=== PATIENT | male | born 1975 | race African-American/Black ===

== ENCOUNTER 2019-02-04 21:01 | Emergency (ER) | payer OTHER ==
--- NOTE | 2019-02-04 21:08 | PDOC ---
Rapid Medical Evaluation Time Seen by Provider: 02/04/19 21:08 Medical Evaluation: 02/04/19 21:08 I performed a brief in-person evaluation of this patient. 43-year-old male with HTN, IDDM complaining of two days of cough, congestion, chills, and chest "heaviness", pain. Pertinent physical exam findings: RRR,S1/S2 Lungs CTAB Nasal congestion I have ordered the following: EKG CXR Rapid flu Patient to proceed to: ED for further evaluation Discharge Disposition - Diagnosis Chest pain - Referrals - Patient Instructions - Post Discharge Activity
[2019-02-04 21:11] VITALS: TEMP 99.5; BMI 32.8
[2019-02-04] MEDS ORDERED: DEXAMETHASONE LIQUID 0.5 MG/5 ML PO ONE (22:19)
[2019-02-04] MEDS ORDERED: ACETAMINOPHEN 500 MG TABLET (FP) PO ONE (22:20)
[2019-02-04] MEDS ORDERED: DEXAMETHASONE SOD PHOSPHATE 10 MG/1 ML VIAL ONE (22:29)
[2019-02-04] MEDS ORDERED: ACETAMINOPHEN 500 MG TABLET (FP) ONE (22:29)
[2019-02-04] MEDS ORDERED: ALBUTEROL SO4 2.5/IPRATROPIUM 0.5 INH SOL 3 ML VIAL.NEB. NEB ONE (22:29)
--- NOTE | 2019-02-04 22:37 | PDOC ---
History of Present Illness - General Chief Complaint: Respiratory Stated Complaint: CHEST PAIN Time Seen by Provider: 02/04/19 21:08 - History of Present Illness Initial Comments: 02/04/19 22:32 43-year-old male with a past medical history of diabetes presents for evaluation of cough and flulike symptoms x2 days Past History - Past Medical History Allergies/Adverse Reactions: Allergies Allergy/AdvReac Type Severity Reaction Status Date / Time No Known Allergies Allergy Verified 02/04/19 21:11 Home Medications: Ambulatory Orders Albuterol Sulfate Inhaler - [Ventolin HFA Inhaler -] 1 - 2 inh PO Q4H #1 inhaler 02/04/19 Azithromycin [Zithromax -] 250 mg PO UTDICT #6 tab 02/04/19 Guaifenesin Dm [Mucinex Dm -] 1 tab PO BID #60 tab.er.12h 02/04/19 COPD: No Diabetes: Yes (IDDM) HTN: Yes - Psycho Social/Smoking Cessation Hx Smoking History: Never smoked Review of Systems - Review of Systems Constitutional: Yes: Chills, Fever, Malaise, Night Sweats Respiratory: Yes: Cough *Physical Exam - Vital Signs Last Vital Signs Temp Pulse Resp BP Pulse Ox 99.5 F 101 H 18 137/96 97 02/04/19 21:08 02/04/19 21:08 02/04/19 21:08 02/04/19 21:08 02/04/19 21:08 - Physical Exam 02/04/19 22:32 GENERAL: The patient is awake, alert, and fully oriented, in no acute distress. HEAD: Normal with no signs of trauma. EYES: sclera anicteric, conjunctiva clear. ENT: Ears normal tympanic membranes normal oropharynx clear uvula midline NECK: Normal range of motion LUNGS: Diffuse wheezing and bibasilar rhonchi HEART: S1 and S2 without murmur, rub or gallop. ABDOMEN: Soft, nontender, normoactive bowel sounds. No guarding, no rebound. No masses. EXTREMITIES: Normal range of motion, no edema. No clubbing or cyanosis. No cords, erythema, or tenderness. NEUROLOGICAL: Cranial nerves II through XII grossly intact. Normal speech, normal gait. PSYCH: Normal mood, normal affect. SKIN: Warm, Dry, normal turgor, no rashes or lesions noted. Medical Decision Making - Medical Decision Making 02/04/19 22:37 EKG normal, improved after duoneb and steroids, will treat with zithromax cxr clear Discharge - Discharge Information Problems reviewed: Yes Clinical Impression/Diagnosis: Chest pain, Bronchitis Condition: Improved Disposition: HOME - Admission No - Additional Discharge Information Prescriptions: Albuterol Sulfate Inhaler - [Ventolin HFA Inhaler -] 1 - 2 inh PO Q4H #1 inhaler Azithromycin [Zithromax -] 250 mg PO UTDICT #6 tab Guaifenesin Dm [Mucinex Dm -] 1 tab PO BID #60 tab.er.12h - Follow up/Referral Referrals: ON STAFF,NOT [Primary Care Provider] - - Patient Discharge Instructions Patient Printed Discharge Instructions: DI for Acute Bronchitis Additional Instructions: Please use the antibiotic inhaler and Mucinex as directed. Return to the emergency room for worsening symptoms and without fail please follow-up with your primary care physician in 1 to 2 days for further evaluation and treatment options - Post Discharge Activity
[2019-02-04] MEDS: ALBUTEROL SO4 2.5/IPRATROPIUM 0.5 INH SOL 3 ML VIAL.NEB. NEB SCH (22:39)
[2019-02-04 23:08] VITALS: BP 133/90; PULSE 89
--- NOTE | 2019-02-05 12:13 | EKG ---
Test Reason : Blood Pressure : / mmHG Vent. Rate : 094 BPM Atrial Rate : 094 BPM P-R Int : 168 ms QRS Dur : 082 ms QT Int : 346 ms P-R-T Axes : 045 042 020 degrees QTc Int : 432 ms NORMAL SINUS RHYTHM NORMAL ECG NO PREVIOUS ECGS AVAILABLE Confirmed by MD Renny, Anish ([id number]) on 02/05/2019 12:13:12 PM Referred By: Confirmed By:Anish Lawson MD
== END 2019-02-04 22:58 | disposition home or self-care (01) ==
LOC: JERFT 21:01
PROC: 3E0F7GC Introduction of Other Therapeutic Substance into Respiratory Tract, Via Natural or Artificial Opening (ICD-10-PCS; principal; 2019-02-04)
DX: J20.9 Acute bronchitis, unspecified (principal); I10 Essential (primary) hypertension; E10.9 Type 1 diabetes mellitus without complications; Z79.4 Long term (current) use of insulin
CPT/HCPCS: 71046-TC-FY; 87804; 93005; 93010; 99281-25